=== PATIENT | male | born 1995 | race Caucasian/White ===

== ENCOUNTER 2017-04-14 15:48 | Emergency (ER) | payer OTHER ==
[2017-04-14 18:02] LABS: ADD MAN DIFF? NO
[2017-04-14 18:03] LABS: BASOPHILS % 0.6 % (0.0-2.0); EOSINOPHILS # 0.2 10^3/ul (0.0-0.5); EOSINOPHILS % 2.4 % (0.0-7.0); HEMATOCRIT 48.7 % (42.0-52.0); HEMOGLOBIN 16.7 g/dl (14.0-18.0); LYMPHOCYTES # 1.6 10^3/ul (0.8-2.9); LYMPHOCYTES % 23.7 % (18.0-55.0); MEAN CORPUSCULAR HEMOGLOBIN 30.9 pg (29.0-33.0); MEAN CORPUSCULAR HGB CONC 34.3 g/dl (32.0-37.0); MEAN PLATELET VOLUME 9.4 fl (7.4-10.4); MONOCYTE # 0.5 10^3/ul (0.3-0.9); NEUTROPHIL # 4.4 10^3/ul (1.6-7.5); NEUTROPHILS % 65.2 % (30.0-74.0); PLATELET COUNT 266 10^3/UL (140-415); RED BLOOD COUNT 5.41 10^6/ul (4.70-6.10); RED CELL DISTRIBUTION WIDTH 11.8 % (11.5-14.5)
[2017-04-14 18:03] LABS: WHITE BLOOD COUNT 6.7 10^3/ul (4.8-10.8)
[2017-04-14 18:13] LABS: ADD UMIC YES; UR ASCORBIC ACID NEGATIVE (NEGATIVE); UR BILIRUBIN (Dip) NEGATIVE (NEGATIVE); UR BLOOD (Dip) NEGATIVE (NEGATIVE); UR CLARITY CLOUDY (CLEAR); UR COLOR YELLOW (YELLOW); UR GLUCOSE (Dip) NEGATIVE (NEGATIVE); UR KETONES (Dip) NEGATIVE (NEGATIVE); UR LEUKOCYTE ESTERASE (Dip) NEGATIVE Leu/ul (NEGATIVE); UR MUCUS FEW /HPF (NONE SEEN); UR NITRITE (Dip) NEGATIVE (NEGATIVE); UR RBC 0 /HPF (0-5); UR SPECIFIC GRAVITY (Dip) 1.019 (1.003-1.030); UR TOTAL PROTEIN (Dip) NEGATIVE (NEGATIVE); UR UROBILINOGEN (Dip) 1+ mg/dL (NEGATIVE); UR WBC 0 /HPF (0-5)
[2017-04-14 18:25] LABS: ALANINE AMINOTRANSFERASE 32 IU/L (13-69); ALBUMIN 5.1 g/dl (3.3-4.9); ALBUMIN/GLOBULIN RATIO 1.75; ALKALINE PHOSPHATASE 63 IU/L (42-121); ANION GAP 17 (8-16); ASPARTATE AMINO TRANSFERASE 20 IU/L (15-46); BILIRUBIN,INDIRECT 1.1 mg/dl (0-1.1); BILIRUBIN,TOTAL 1.1 mg/dl (0.2-1.3); BLOOD UREA NITROGEN 13 mg/dl (7-20); CALCIUM 9.6 mg/dl (8.4-10.2); CARBON DIOXIDE 27 mmol/L (21-31); CHLORIDE 102 mmol/L (97-110); CREATININE 0.99 mg/dl (0.61-1.24); GLUCOSE 97 mg/dl (70-220); LIPASE 64 U/L (23-300); POTASSIUM 4.1 mmol/L (3.5-5.1); SODIUM 142 mmol/L (135-144)
== END 2017-04-14 19:28 | disposition home or self-care (01) ==
LOC: FTE 15:48
DX: N50.811 Right testicular pain (principal)
CPT/HCPCS: 36415; 74176; 76870; 80053; 81001; 83690; 85025; 99285-25

== ENCOUNTER 2017-04-26 14:30 | Emergency (ER) | payer OTHER ==
[2017-04-26] MEDS: AZITHROMYCIN 250 MG TAB PO (16:32)
[2017-04-26] MEDS: CEFTRIAXONE 250 MG INJ IM (16:32)
[2017-04-26 16:38] LABS: URINE BLOOD (Dip) POC Negative (NEGATIVE); URINE GLUCOSE (Dip) POC Negative (NEGATIVE); URINE KETONES (Dip) POC Negative (NEGATIVE); URINE LEUKOCYTE EST (Dip) POC Negative (NEGATIVE); URINE NITRITE (Dip) POC Negative (NEGATIVE); URINE TOTAL PROTEIN POC Trace (NEGATIVE)
[2017-04-26 16:38] LABS: URINE PH (Dip) POC 8.5 (5.0-8.5)
== END 2017-04-26 17:09 | disposition home or self-care (01) ==
LOC: FTE 14:30
DX: N48.1 Balanitis (principal)
CPT/HCPCS: 81003; 87591; 96372; 99284-25

== ENCOUNTER 2018-04-25 21:06 | Emergency (ER) | payer OTHER ==
[2018-04-25 22:27] LABS: URINE BLOOD (Dip) POC Negative (NEGATIVE); URINE GLUCOSE (Dip) POC Negative (NEGATIVE); URINE KETONES (Dip) POC 1+ (NEGATIVE); URINE LEUKOCYTE EST (Dip) POC Negative (NEGATIVE); URINE NITRITE (Dip) POC Negative (NEGATIVE); URINE TOTAL PROTEIN POC Negative (NEGATIVE)
[2018-04-25] MEDS: AZITHROMYCIN 250 MG TAB PO (22:30)
[2018-04-25] MEDS: CEFTRIAXONE 250 MG INJ IM (22:34)
== END 2018-04-25 23:37 | disposition home or self-care (01) ==
LOC: FTE 21:06
DX: N34.2 Other urethritis (principal)
CPT/HCPCS: 81003; 87086; 96372; 99284-25

== ENCOUNTER 2018-08-12 16:20 | Emergency (ER) | payer OTHER ==
[2018-08-12 17:16] LABS: ADD MAN DIFF? NO
[2018-08-12 17:21] LABS: ADD UMIC NO; UR ASCORBIC ACID NEGATIVE (NEGATIVE); UR BILIRUBIN (Dip) NEGATIVE (NEGATIVE); UR BLOOD (Dip) NEGATIVE (NEGATIVE); UR CLARITY CLEAR (CLEAR); UR COLOR YELLOW (YELLOW); UR GLUCOSE (Dip) NEGATIVE (NEGATIVE); UR KETONES (Dip) NEGATIVE (NEGATIVE); UR LEUKOCYTE ESTERASE (Dip) NEGATIVE Leu/ul (NEGATIVE); UR NITRITE (Dip) NEGATIVE (NEGATIVE); UR SPECIFIC GRAVITY (Dip) 1.023 (1.003-1.030); UR TOTAL PROTEIN (Dip) NEGATIVE (NEGATIVE); UR UROBILINOGEN (Dip) NEGATIVE (NEGATIVE)
[2018-08-12 17:36] LABS: BASOPHIL # 0.1 10^3/ul (0.0-0.1); BASOPHILS % 0.7 % (0.0-2.0); EOSINOPHILS # 0.3 10^3/ul (0.0-0.5); EOSINOPHILS % 4.1 % (0.0-7.0); HEMATOCRIT 46.9 % (42.0-52.0); HEMOGLOBIN 15.8 g/dl (14.0-18.0); LYMPHOCYTES # 2.5 10^3/ul (0.8-2.9); LYMPHOCYTES % 33.3 % (18.0-55.0); MEAN CORPUSCULAR HEMOGLOBIN 29.9 pg (29.0-33.0); MEAN CORPUSCULAR HGB CONC 33.7 g/dl (32.0-37.0); MEAN CORPUSCULAR VOLUME 88.7 fl (72.0-104.0); MEAN PLATELET VOLUME 9.8 fl (7.4-10.4); MONOCYTE # 0.7 10^3/ul (0.3-0.9); MONOCYTES % 9.9 % (0.0-13.0); NEUTROPHIL # 3.8 10^3/ul (1.6-7.5); NEUTROPHILS % 51.9 % (30.0-74.0); PLATELET COUNT 273 10^3/UL (140-415); RED BLOOD COUNT 5.29 10^6/ul (4.70-6.10); RED CELL DISTRIBUTION WIDTH 11.8 % (11.5-14.5)
[2018-08-12 17:36] LABS: WHITE BLOOD COUNT 7.4 10^3/ul (4.8-10.8)
[2018-08-12 17:51] LABS: ANION GAP 10 (5-13); BLOOD UREA NITROGEN 15 mg/dl (7-20); CALCIUM 10.3 mg/dl (8.4-10.2); CARBON DIOXIDE 29 mmol/L (21-31); CHLORIDE 103 mmol/L (97-110); CREATININE 0.95 mg/dl (0.61-1.24); Estimated GFR > 60 mL/min (>60); GLUCOSE 92 mg/dl (70-220); POTASSIUM 4.3 mmol/L (3.5-5.1); SODIUM 142 mmol/L (135-144)
[2018-08-12] MEDS: SOD CHLORIDE 0.9% 100 ML (18:38)
[2018-08-12] MEDS: IOHEXOL 100 ML (18:39)
== END 2018-08-12 21:16 | disposition home or self-care (01) ==
LOC: FTE 16:20
DX: S19.9XXA Unspecified injury of neck, initial encounter (principal); X58.XXXA Exposure to other specified factors, initial encounter; Y92.9 Unspecified place or not applicable
CPT/HCPCS: 36415; 70496; 70498; 80048; 81003; 85025; 99284-25